=== PATIENT | female | born 1935 | race Caucasian/White ===

== ENCOUNTER 2016-08-14 12:47 | Emergency (ER) | payer OTHER ==
[~2016-08-14] VITALS: Ht 167.6 cm; Wt 61.7 kg
[2016-08-14 13:52] LABS: Basophils # (auto) 0 uL; Basophils % (auto) 0.3 % (0.0-2.0); CONDITION Y; DEFINITIVE SEE PRINTOUT; Eosinophils # (auto) 0.1 uL; Eosinophils % (auto) 0.9 % (0.0-7.0); Hematocrit 34.3 % (36.0-46.0); Hemoglobin 11.5 g/dL (12.2-16.2); Lymphocytes # (auto) 1.3 uL; Lymphocytes % (auto) 10.1 % (10.0-50.0); Mean Corpuscular Hemoglobin 32.9 pg (28.0-32.0); Mean Corpuscular Hgb Conc. 33.6 g/dL (32.0-36.0); Mean Corpuscular Volume 97.9 fL (80.0-100.0); Mean Platelet Volume 6.1 fL (7.4-10.4); Monocytes # (auto) 0.9 uL; Monocytes % (auto) 7.1 % (0.0-12.0); Neutrophils # (auto) 10.6 uL; Neutrophils % (auto) 81.6 % (37.0-80.0); Red Cell Distribution Width 13.4 % (11.6-16.0)
[2016-08-14 14:23] LABS: Albumin 2.4 g/dL (3.4-5.0); Blood Urea Nitrogen 7 mg/dL (7-18); Chloride 95 mmol/L (98-107); Glucose 91 mg/dL (74-106); Potassium 4.1 mmol/L (3.5-5.1); Sodium 132 mmol/L (136-145)
[2016-08-14 14:28] LABS: B-Type Natriuretic Peptide 147.67 pg/mL (0-100)
[2016-08-14 14:31] LABS: Temperature: 22.9 C (20.0-25.0)
[2016-08-14 14:32] LABS: Platelet Count (auto) 896 10^3/uL (140-450)
[2016-08-14 14:52] LABS: Platelet Estimate Markedly Increased
[2016-08-14 14:53] LABS: RBC Morphology Normal
[2016-08-14] MEDS ORDERED: HEPARIN SODIUM (PORCINE) 5000 UNITS/ML 1ML VIAL IV ONE (15:00)
[2016-08-14 15:03] LABS: Alkaline Phosphatase 113 U/L (45-117); Anion Gap 14 (5-15); Aspartate Aminotransferase 21 U/L (15-37); BUN/Creatinine Ratio 17.9; Bilirubin, Total 0.3 mg/dL (0.2-1.0); Calcium 9.5 mg/dL (8.5-10.1); Carbon Dioxide 23 mmol/L (21-32); GFR African American 204 mL/min; GFR Non-African American 169 mL/min
[2016-08-14 15:31] LABS: Urine Bilirubin Negative (Negative); Urine Blood Negative /uL (Negative); Urine Color Yellow (Yellow); Urine Glucose Normal (Normal); Urine Ketone Negative (Negative); Urine Nitrite Negative (Negative); Urine RBC <1 /hpf (0 - 4); Urine Squamous Epithelial Cell FEW /hpf (<5); Urine Urobilinogen Normal (Negative); Urine pH 6.5 (5.0-8.0)
[2016-08-14 17:23] VITALS: BP 116/73
== END 2016-08-14 17:38 | disposition short-term general hospital (02) ==
LOC: ER 12:47
DX: I26.99 Other pulmonary embolism without acute cor pulmonale (principal); D47.3 Essential (hemorrhagic) thrombocythemia; E46 Unspecified protein-calorie malnutrition; Z90.89 Acquired absence of other organs; Z85.3 Personal history of malignant neoplasm of breast
CPT/HCPCS: 36415; 80053; 81001; 83880; 84484; 85025; 93005; 96374; 99285; J1644

== ENCOUNTER 2018-04-04 00:31 | Emergency (ER) | payer OTHER ==
[~2018-04-04] VITALS: Ht 167.6 cm; Wt 64.9 kg
[2018-04-04] MEDS ORDERED: HYDROmorphone HCL 2 MG/ML VL ONE (01:49)
[2018-04-04] MEDS ORDERED: HYDROmorphone HCL 2 MG/ML VL IV ONE (02:00)
[2018-04-04 04:34] LABS: Basophils # (auto) 0 uL; Eosinophils # (auto) 0 uL; Eosinophils % (auto) 0.1 % (0.0-7.0); Lymphocytes # (auto) 0.6 uL; Monocytes # (auto) 0.4 uL
[2018-04-04 04:36] LABS: Basophils % (auto) 0.3 % (0.0-2.0); Hematocrit 37.6 % (36.0-46.0); Hemoglobin 12.7 g/dL (12.2-16.2); Lymphocytes % (auto) 5.9 % (10.0-50.0); Mean Corpuscular Hemoglobin 34.2 pg (28.0-32.0); Mean Corpuscular Hgb Conc. 33.7 g/dL (32.0-36.0); Mean Corpuscular Volume 101.5 fL (80.0-100.0); Monocytes % (auto) 4.6 % (0.0-12.0); Neutrophils # (auto) 8.5 uL; Neutrophils % (auto) 89.1 % (37.0-80.0); Platelet Count (auto) 303 10^3/uL (140-450); Red Blood Cells 3.71 10^6/uL (4.0-5.20); White Blood Cell 9.6 10^3/uL (4.4-10.8)
[2018-04-04 04:38] LABS: Urine Bacteria NONE SEEN /hpf (None Seen); Urine Blood Negative /uL (Negative); Urine Mucus FEW (None Seen); Urine Specific Gravity 1.012 (1.001-1.035); Urine WBC 1 /hpf (0 - 5)
[2018-04-04 04:48] LABS: Albumin 3.7 g/dL (3.4-5.0); BUN/Creatinine Ratio 16.4; Calcium 8.2 mg/dL (8.5-10.1)
[2018-04-04 04:49] LABS: INR 0.94 (0.9-1.15); Partial Thromboplastin Time 28.3 sec (23.78-33.04); Prothrombin Time 10.1 sec (9.27-12.13)
[2018-04-04 04:50] LABS: Bilirubin, Total 0.2 mg/dL (0.2-1.0); Total Protein 6.9 g/dL (6.4-8.2)
[2018-04-04 05:13] VITALS: BP 123/65
== END 2018-04-04 05:31 | disposition short-term general hospital (02) ==
LOC: EDBD 00:31 → ER 00:39
DX: M24.452 Recurrent dislocation, left hip (principal); Z90.49 Acquired absence of other specified parts of digestive tract
CPT/HCPCS: 36415; 51702; 71045; 73501; 80053; 81001; 85025; 85610; 85730; 94761; 96374; 99285; J1170